=== PATIENT | female | born 1980 | race Caucasian/White ===

== ENCOUNTER 2018-06-02 22:50 | Emergency (ER) | payer BC ==
[~2018-06-02] VITALS: Ht 160 cm; Wt 90.7 kg
--- NOTE | ~2018-06-02 | EKG ---
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
--- NOTE | ~2018-06-02 | EKG ---
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
[2018-06-02 23:26] LABS: BASO # 0.1 10*3/uL (0.0-0.1); BASO % 0.5 % (0.0-1.0); EOS # 0.3 10*3/uL (0.0-0.4); EOS % 2.3 % (1.0-4.0); HEMATOCRIT 39.7 % (37.0-47.0); HEMOGLOBIN 12.9 g/dl (12.0-16.0); LYMPH # 4.7 10*3/uL (1.3-4.4); LYMPH % 37.3 % (27.0-41.0); MEAN CELL VOLUME 83.4 fl (81.0-99.0); MEAN CORPUSCULAR HGB 27.1 pg (27.0-31.0); MEAN CORPUSCULAR HGB CONC 32.5 g/dl (33.0-37.0); MEAN PLATELET VOLUME 10.6 fl (9.6-12.3); MONO # 0.8 10*3/uL (0.1-1.0); MONO % 6.5 % (3.0-9.0); NEUT # 6.6 10*3/uL (2.3-7.9); PLATELET COUNT AUTOMATED 381 10*3/uL (130-400); RED BLOOD COUNT 4.76 10*6/uL (4.10-5.10); RED CELL DISTRI WIDTH 13.4 % (0-14.5); WHITE BLOOD COUNT 12.5 10*3/uL (4.8-10.8)
[2018-06-02 23:35] LABS: ACT PARTIAL THROMBO TIME 22.7 SECONDS (20.8-31.5)
[2018-06-02 23:44] LABS: ALBUMIN 3.9 gm/dl (3.1-4.5); ALKALINE PHOSPHATASE 62 U/L (45-117); BUN 10 mg/dl (7-24); CHLORIDE 108 mmol/L (98-107); CREATININE 0.83 mg/dL (0.55-1.02); POTASSIUM 3.7 mmol/L (3.5-5.1); SGOT/AST 15 IU/L (3-35); SGPT/ALT 25 U/L (12-78); SODIUM 140 mmol/L (136-145); TOTAL PROTEIN 7.6 gm/dL (6.4-8.2)
[2018-06-02 23:46] LABS: TROPONIN I < 0.015 ng/ml (<0.045)
== END 2018-06-03 02:30 | disposition home or self-care (01) ==
LOC: ED 22:50
PROVIDERS: Emergency Medicine
DX: R07.89 Other chest pain (principal)

== ENCOUNTER → 2018-07-18 | Outpatient (CLI) | payer BC ==
[~2018-07-18] MED LIST: CYCLOBENZAPRINE10 MG PO; LISINOPRIL-HCT1 EACH PO; MOBIC7.5 MG PO; NEURONTIN100 MG PO; TRAMADOL HCL50 MG PO
--- NOTE | ~2018-07-18 | ST ---
[place], [place] EXERCISE STRESS TEST REPORT [id number] UNIT #: [id number] ROOM: DOCTOR: HARJINDER CHAVEZ MD BIRTHDATE: [birth year] DOS: 07/18/2018 This is an exercise stress test which is part of a stress echocardiogram. INDICATIONS: Chest pain and palpitations. PROCEDURE: The patient exercised by a full Luis protocol for 9 minutes and achieved a maximum heart rate of 167, which represented 90% of her maximum predicted heart rate. She stopped for fatigue and dyspnea. She did not reproduce her chest pain or palpitations. Her resting heart rate of 86 zackery to 167. Her resting blood pressure of 112/58 zackery to 148/84. With exercise, she did develop [address] segment depression in leads II, III, aVF and V3 through V6; however, her baseline electrocardiogram did show left ventricular hypertrophy and these changes are therefore nonspecific. They resolved immediately in recovery. IMPRESSIONS: 1. Good exercise capacity without chest pain. 2. Abnormal resting electrocardiogram demonstrating left ventricular hypertrophy. 3. Abnormal stress electrocardiogram with [address] segment depression in the inferior and lateral leads, but without symptoms. 4. Friedman treadmill score of 4 consistent with moderate risk of cardiac events. Please note stress echocardiographic images were obtained before and after exercise and will be reported separately. Please see the stress echo report for further details of the patient's stress test results. HARJINDER CHAVEZ MD CM:STRESS:EXERCISE STRESS TEST REPORT [id number] HARJINDER CHAVEZ MD
--- NOTE | ~2018-07-18 | HM ---
[place], [place] HOLTER MONITOR REPORT NAME: SAMIRA JOSHI UNIT #: [id number] ROOM: DOCTOR: HARJINDER CHAVEZ MD BIRTHDATE: [birth year] DOS: 07/21/2018 A 48-HOUR HOLTER MONITOR REPORT Study was recorded from July 18 through 07/20/2018. The recording was analyzed and interpreted and this is being an addict 07/21/2018. INDICATIONS: Palpitations and precordial chest pain. FINDINGS: The patient was monitored for 48 hours utilizing a Holter device. The basic rhythm was sinus with an average heart rate of 85 beats per minute. Heart rates varied from 54 to 143 beats per minute with the highest heart rate recorded the first day at about 2:30 p.m. Very rare premature ventricular contractions were obtained. Only 8 were recorded in 48 hours. No ventricular tachycardia was seen. Rare premature atrial contractions were recorded at a rate of 1-2 occurrences per hour. There was no SVT and no prolonged pause recorded. The patient did return a diary, during which she did mention mild chest discomfort. During these occasions, she was in a mild sinus tachycardia with rates between 101 and 112. There was no other arrhythmia noted. IMPRESSION: 1. Normal 48-hour Holter monitor. 2. Episodes of chest discomfort associated with mild sinus tachycardia. HARJINDER CHAVEZ MD CM:HOLTER:HOLTER MONITOR REPORT [id number] HARJINDER CHAVEZ MD
== END | disposition home or self-care (01) ==
LOC: CARD 04:45
DX: I10 Essential (primary) hypertension (principal); R07.9 Chest pain, unspecified; R00.2 Palpitations; R06.00 Dyspnea, unspecified

== ENCOUNTER → 2019-01-29 | Outpatient (CLI) | payer BC | LOC: US 14:24 | DX: Z12.4 Encounter for screening for malignant neoplasm of cervix (principal); N92.6 Irregular menstruation, unspecified; R30.0 Dysuria ==

== ENCOUNTER → 2019-04-03 | Outpatient (CLI) | payer BC | END | disposition home or self-care (01) | LOC: US 10:00 | DX: N83.202 Unspecified ovarian cyst, left side (principal); N83.201 Unspecified ovarian cyst, right side; N93.8 Other specified abnormal uterine and vaginal bleeding ==

== ENCOUNTER → 2019-06-06 | Outpatient (CLI) | payer BC | END | disposition home or self-care (01) | LOC: US 12:30 | DX: N83.201 Unspecified ovarian cyst, right side (principal) ==

== ENCOUNTER → 2022-10-25 | Day surgery (SDC) | payer OTHER ==
[2022-10-20 13:33] VITALS: BP 138/71
[~2022-10-25] VITALS: Ht 170.1 cm; Wt 95.3 kg
[2022-10-25] VITALS (8 sets, daily range): BP systolic 108–131; BP diastolic 51–88
[~2022-10-25] MED LIST changes: +Percocet 325 MG1 TAB PO
== END | disposition home or self-care (01) ==
LOC: SDC 10-20 13:15
PROVIDERS: ATTEND Obstetrics & Gynecology
DX: Z30.2 Encounter for sterilization (principal)